=== PATIENT | female | born 1990 | race African-American/Black ===

== ENCOUNTER 2016-11-07 21:52 | Emergency (ER) | payer MEDICAID ==
[~2016-11-07] VITALS: Ht 170.2 cm; Wt 109.5 kg
[~2016-11-07 21:52] MED LIST: AMOXICILLIN/CLA1 TA1 PO; BACTRIM DS 8001 TAB PO; NORCO 325 MG-51 TAB PO; PERCOCET 325 MG1 TA2 PO; SEPTRA DS 8001 TAB PO; ZOFRAN ODT4 MG PO
[2016-11-07 21:54] VITALS: BP 135/96; TEMP 98.1
[2016-11-07] MEDS ORDERED: TYLENOL W/COD1 UDTAB PO (22:38)
[2016-11-07] MEDS ORDERED: VOLTAREN 75 DR75 MG PO (22:38)
[2016-11-07] MEDS ORDERED: BACTRIM DS 8001 TAB PO (22:38)
[2016-11-07 22:55] VITALS: PULSE 96
== END 2016-11-07 22:56 | disposition home or self-care (01) ==
LOC: COL.ER 21:52
DX: N76.2 Acute vulvitis (principal)

== ENCOUNTER 2016-11-08 16:08 | Emergency (ER) | payer MEDICAID ==
[~2016-11-08] VITALS: Ht 170.2 cm; Wt 86.4 kg
[~2016-11-08 16:08] MED LIST changes: +TYLENOL W/COD1 UDTAB PO; +VOLTAREN 75 DR75 MG PO
[2016-11-08 16:17] VITALS: BP 135/88; TEMP 98.6
[2016-11-08 17:40] VITALS: PULSE 85
== END 2016-11-08 18:35 | disposition home or self-care (01) ==
LOC: COL.ER 16:08
DX: N76.4 Abscess of vulva (principal)

== ENCOUNTER 2017-03-27 08:41 | Emergency (ER) | payer MEDICAID ==
[~2017-03-27] VITALS: Ht 170.2 cm; Wt 90.9 kg
[2017-03-27 08:45] VITALS: TEMP 98
[2017-03-27] MEDS ORDERED: NORCO 325 MG-51 TAB PO (09:44)
[2017-03-27] MEDS ORDERED: AMOXICILLIN 8751 TAB PO (09:44)
[2017-03-27 10:12] VITALS: BP 119/78; PULSE 69
== END 2017-03-27 10:13 | disposition home or self-care (01) ==
LOC: COL.ER 08:41
DX: L03.314 Cellulitis of groin (principal)

== ENCOUNTER 2017-07-12 13:42 | Emergency (ER) | payer MEDICAID ==
[~2017-07-12] VITALS: Ht 170.2 cm; Wt 117.3 kg
[~2017-07-12 13:42] MED LIST changes: +AMOXICILLIN 8751 TAB PO
[2017-07-12 13:45] VITALS: BP 135/92; PULSE 83; TEMP 98.1
[2017-07-12 14:56] LABS: CALCIUM 9.7 mg/dL (8.4-10.2); CREATININE, serum 0.68 mg/dL (0.52-1.25); POTASSIUM 3.9 mmol/L (3.4-5.0)
[2017-07-12 15:00] LABS: BASO % 0.3 % (0.0-2.0); EOS # 0.1 (0.0-0.7); EOS % 1.6 % (0-4.0); GRAN # 3.7 (1.4-6.5); GRAN % 53.2 % (42.2-75.2); LYMPH # 2.3 (1.2-3.4); LYMPH % 32.8 % (20.0-51.0); MEAN CELL VOLUME 74 fl (80.0-100.0); MEAN CORPUSCULAR HGB CONC 32 g/dl (33.0-37.0); MEAN PLATELET VOLUME 9.7 fl (7.4-10.4); MONO # 0.8 (0.1-0.6); MONO % 11.8 % (1.7-9.3); PLATELET COUNT 375 K/mm3 (130-400); RED BLOOD COUNT 4.41 M/mm3 (4.10-5.30); REDCELL DISTRIBUTION WIDTH-CV 16.2 % (11.5-14.5); WHITE BLOOD COUNT 6.9 K/mm3 (4.8-10.8)
[2017-07-12 15:05] LABS: HEMATOCRIT 32.5 % (37.0-47.0); HEMOGLOBIN 10.3 g/dl (12.5-16.0); MEAN CORPUSCULAR HEMOGLOBIN 23 pg (27.0-31.0)
[2017-07-12] MEDS ORDERED: CEPHALEXIN500 M1 PO (15:30)
[2017-07-12] MEDS ORDERED: ROXICODONE 55 MG/TAB PO (15:30)
== END 2017-07-12 15:41 | disposition home or self-care (01) ==
LOC: COL.ER 13:42
PROVIDERS: Emergency Medicine
DX: N61.0 Mastitis without abscess (principal); Z87.891 Personal history of nicotine dependence

== ENCOUNTER 2018-04-30 00:38 | Emergency (ER) | payer MEDICAID ==
[~2018-04-30] VITALS: Ht 170.2 cm; Wt 121.4 kg
[~2018-04-30 00:38] MED LIST changes: +CEPHALEXIN500 M1 PO; +ROXICODONE 55 MG/TAB PO
[2018-04-30 00:45] VITALS: TEMP 98.9
[2018-04-30 01:28] LABS: COLLECTION METHOD CLEAN CATCH
[2018-04-30 01:33] LABS: MUCOUS Present /lpf; PH 6 (5-8); URINE APPEARANCE Hazy; URINE BACTERIA Rare /hpf; URINE BILIRUBIN Negative (NEGATIVE); URINE BLOOD 3+ (NEGATIVE); URINE COLOR Yellow; URINE GLUCOSE Negative (NEGATIVE); URINE KETONE Negative (NEGATIVE); URINE LEUKOCYTE ESTERASE Negative (NEGATIVE); URINE NITRATE Negative (NEGATIVE); URINE PROTEIN(semi-quant) Negative (NEGATIVE); URINE RBC 20-50 /hpf; URINE UROBILINOGEN Negative (NEGATIVE)
[2018-04-30] MEDS ORDERED: FOLIVANE-OB1 CAP PO (01:35)
[2018-04-30 02:16] VITALS: BP 110/71
[2018-04-30 03:05] VITALS: PULSE 98
== END 2018-04-30 03:05 | disposition home or self-care (01) ==
LOC: COL.ER 00:38
PROVIDERS: Nurse Practitioner
DX: O20.9 Hemorrhage in early pregnancy, unspecified (principal); Z87.891 Personal history of nicotine dependence; Z3A.01 Less than 8 weeks gestation of pregnancy

== ENCOUNTER 2018-05-26 13:00 | Emergency (ER) | payer MEDICARE, MEDICAID ==
[~2018-05-26] VITALS: Ht 170.2 cm; Wt 116.8 kg
[~2018-05-26 13:00] MED LIST changes: +FOLIVANE-OB1 CAP PO
[2018-05-26 13:03] VITALS: TEMP 98.2
[2018-05-26 13:54] LABS: BASO % 0.4 % (0.0-2.0); EOS # 0.1 (0.0-0.7); EOS % 1.5 % (0-4.0); GRAN # 2.1 (1.4-6.5); GRAN % 44.1 % (42.2-75.2); HEMOGLOBIN 11.7 g/dl (12.5-16.0); LYMPH # 2.1 (1.2-3.4); LYMPH % 43.3 % (20.0-51.0); MEAN CELL VOLUME 74 fl (80.0-100.0); MEAN CORPUSCULAR HEMOGLOBIN 24 pg (27.0-31.0); MEAN CORPUSCULAR HGB CONC 33 g/dl (33.0-37.0); MEAN PLATELET VOLUME 9.5 fl (7.4-10.4); MONO # 0.5 (0.1-0.6); MONO % 10.5 % (1.7-9.3); PLATELET COUNT 388 K/mm3 (130-400); REDCELL DISTRIBUTION WIDTH-CV 17.1 % (11.5-14.5)
[2018-05-26 14:01] LABS: ALBUMIN 4.3 gm/dL (3.5-5.0); BILIRUBIN,TOTAL 0.3 mg/dL (0.0-1.0); CALCIUM 10.1 mg/dL (8.4-10.2); CREATININE, serum 0.67 mg/dL (0.52-1.25); POTASSIUM 3.8 mmol/L (3.4-5.0); TOTAL PROTEIN 8.5 gm/dL (6.4-8.2)
[2018-05-26 14:24] LABS: COLLECTION METHOD CLEAN CATCH
[2018-05-26 14:34] LABS: MUCOUS Present /lpf; PH 5 (5-8); URINE APPEARANCE Hazy; URINE BACTERIA Many /hpf; URINE BILIRUBIN Negative (NEGATIVE); URINE BLOOD Negative (NEGATIVE); URINE COLOR Yellow; URINE GLUCOSE Negative (NEGATIVE); URINE KETONE Negative (NEGATIVE); URINE LEUKOCYTE ESTERASE Negative (NEGATIVE); URINE NITRATE Negative (NEGATIVE); URINE PROTEIN(semi-quant) 1+ (NEGATIVE); URINE UROBILINOGEN Negative (NEGATIVE)
[2018-05-26] MEDS ORDERED: LIDODERM 5% PATC1 EA TP (15:50)
[2018-05-26] MEDS ORDERED: NORCO 325 MG-51 TAB PO (15:50)
[2018-05-26 16:10] VITALS: BP 111/68; PULSE 71
[2018-05-27] MEDS ORDERED: MACROBID 1100 MG/CAP PO (14:10)
== END 2018-05-26 16:10 | disposition home or self-care (01) ==
LOC: COL.ER 13:00
PROVIDERS: Emergency Medicine
DX: O99.89 Other specified diseases and conditions complicating pregnancy, childbirth and the puerperium (principal); M54.6 Pain in thoracic spine; Z3A.00 Weeks of gestation of pregnancy not specified
CPT/HCPCS: J1170; J2405; J7030

== ENCOUNTER 2018-08-19 11:35 | Emergency (ER) | payer MEDICARE, MEDICAID ==
[~2018-08-19] VITALS: Ht 170.2 cm; Wt 71.4 kg
[~2018-08-19 11:35] MED LIST changes: +LIDODERM 5% PATC1 EA TP; +MACROBID 1100 MG/CAP PO
[2018-08-19 11:43] VITALS: TEMP 98.6
[2018-08-19 12:37] LABS: BASO % 0.3 % (0.0-2.0); EOS # 0.1 (0.0-0.7); EOS % 1.1 % (0-4.0); GRAN # 4.1 (1.4-6.5); GRAN % 62.2 % (42.2-75.2); HEMATOCRIT 33.8 % (37.0-47.0); HEMOGLOBIN 10.9 g/dl (12.5-16.0); LYMPH # 1.7 (1.2-3.4); LYMPH % 26.1 % (20.0-51.0); MEAN CELL VOLUME 77 fl (80.0-100.0); MEAN CORPUSCULAR HEMOGLOBIN 25 pg (27.0-31.0); MEAN CORPUSCULAR HGB CONC 32 g/dl (33.0-37.0); MEAN PLATELET VOLUME 10.1 fl (7.4-10.4); MONO # 0.6 (0.1-0.6); MONO % 9.5 % (1.7-9.3); PLATELET COUNT 381 K/mm3 (130-400); RED BLOOD COUNT 4.41 M/mm3 (4.10-5.30); REDCELL DISTRIBUTION WIDTH-CV 15.9 % (11.5-14.5)
[2018-08-19 13:11] LABS: ALBUMIN 3.9 gm/dL (3.5-5.0); BILIRUBIN,TOTAL 0.2 mg/dL (0.0-1.0); CALCIUM 9.4 mg/dL (8.4-10.2); CREATININE, serum 0.63 mg/dL (0.52-1.25); POTASSIUM 3.8 mmol/L (3.4-5.0); TOTAL PROTEIN 7.7 gm/dL (6.4-8.2)
[2018-08-19 13:58] LABS: C-REACTIVE PROTEIN 1.8 mg/dL (0.0-0.9)
[2018-08-19 14:26] VITALS: BP 128/77; PULSE 71
== END 2018-08-19 14:26 | disposition home or self-care (01) ==
LOC: COL.ER 11:35
PROVIDERS: Nurse Practitioner
DX: O26.892 Other specified pregnancy related conditions, second trimester (principal); R10.10 Upper abdominal pain, unspecified; Z3A.22 22 weeks gestation of pregnancy
CPT/HCPCS: J7030

== ENCOUNTER 2018-11-30 13:54 | Outpatient (CLI) | payer MEDICARE, MEDICAID ==
[~2018-11-30] VITALS: Ht 170.2 cm; Wt 125.0 kg
[2018-11-30 14:14] VITALS: BP 122/87; PULSE 104; TEMP 97.4
--- NOTE | 2018-11-30 14:15 | NUR ---
G1 at 36.6 weeks gestation to LDR4 with c/o contractions. Patient states that "they have been going on all day". She reports good movement and denies leaking of fluid or vaginal bleeding. Patient changed into gown and wedged to left side. EFMs explained and applied. VS obtained and stable. SVE /-3. Assessment completed. Plan of care reviewed.
[2018-11-30 14:45] VITALS: BP 132/81; PULSE 100
[2018-11-30 15:10] VITALS: BP 136/62; PULSE 98
[2018-12-01] MEDS ORDERED: ZANTAC 7575 MG PO (02:34)
== END 2018-11-30 15:20 | disposition home or self-care (01) ==
LOC: LDRO 13:54
DX: O62.9 Abnormality of forces of labor, unspecified (principal); Z3A.36 36 weeks gestation of pregnancy

== ENCOUNTER → 2018-12-01 | Outpatient (CLI) | payer MEDICARE, MEDICAID ==
[~2018-12-01] VITALS: Ht 170.2 cm; Wt 124.5 kg
[~2018-12-01] MED LIST changes: +ZANTAC 7575 MG PO
--- NOTE | 2018-12-01 02:20 | NUR ---
PT TO UNIT VIA WHEELCHAIR WITH C/O OF LEFT SIDED STOMACH PAIN AND DECREASED MOVEMENT. PT ORIENTED TO ROOM, CHANGED INTO GOWN. SVE PERFORMED, VS OBTAINED, EFM APPLIED.
[2018-12-01 02:29] VITALS: BP 122/81; PULSE 92; TEMP 98.5
[2018-12-01 03:00] VITALS: BP 122/81; PULSE 92; TEMP 98.5
--- NOTE | 2018-12-01 03:38 | NUR ---
0338- MONITORING DC'D. 0345- DISCHARGE INSTRUCTIONS REVIEWED WITH PT AND SPOUSE. PT ENCOURAGED TO DRINK PLENTY OF WATER DAILY, UNDERSTANDING VERBALIZED. PT LEFT THE UNIT AMBULATORY WITH SPOUSE.
== END ==
LOC: LDRO 02:13
DX: O36.8130 Decreased fetal movements, third trimester, not applicable or unspecified (principal); O26.893 Other specified pregnancy related conditions, third trimester; R10.9 Unspecified abdominal pain; Z3A.37 37 weeks gestation of pregnancy

== ENCOUNTER 2019-06-22 04:51 | Emergency (ER) | payer MEDICARE, MEDICAID ==
[~2019-06-22] VITALS: Ht 170.2 cm; Wt 109.1 kg
[~2019-06-22 04:51] MED LIST changes: +BREASTPUMP MC; +IBU600 MG PO; +PRENATAL MVI
[2019-06-22 04:54] VITALS: TEMP 97.4
[2019-06-22 05:58] VITALS: BP 106/55
[2019-06-22 07:12] VITALS: PULSE 78
== END 2019-06-22 07:15 | disposition home or self-care (01) ==
LOC: COL.ER 04:51
DX: R51 Headache (principal)
CPT/HCPCS: J1200; J1885; J2550

== ENCOUNTER 2019-06-23 18:37 | Emergency (ER) | payer MEDICARE, MEDICAID ==
[~2019-06-23] VITALS: Ht 170.2 cm; Wt 120.0 kg
[2019-06-23 18:55] VITALS: BP 135/74; PULSE 76; TEMP 98.5
[2019-06-23 20:43] LABS: MEAN CELL VOLUME 68 fl (80.0-100.0); MEAN CORPUSCULAR HGB CONC 30 g/dl (33.0-37.0); MEAN PLATELET VOLUME 9.6 fl (7.4-10.4); PLATELET COUNT 393 K/mm3 (130-400); RED BLOOD COUNT 4.85 M/mm3 (4.10-5.30); REDCELL DISTRIBUTION WIDTH-CV 19.9 % (11.5-14.5)
[2019-06-23 20:45] LABS: HEMATOCRIT 32.8 % (37.0-47.0); HEMOGLOBIN 9.9 g/dl (12.5-16.0); MEAN CORPUSCULAR HEMOGLOBIN 20 pg (27.0-31.0)
[2019-06-23 20:51] LABS: CALCIUM 9.5 mg/dL (8.4-10.2); CREATININE, serum 0.87 (0.52-1.25)
[2019-06-23 20:58] LABS: COLLECTION METHOD CLEAN CATCH
[2019-06-23 21:09] LABS: MUCOUS Present /lpf; PH 6 (5-8); URINE APPEARANCE Hazy; URINE BACTERIA Many /hpf; URINE BILIRUBIN Negative (NEGATIVE); URINE BLOOD Negative (NEGATIVE); URINE COLOR Yellow; URINE GLUCOSE Negative (NEGATIVE); URINE KETONE Negative (NEGATIVE); URINE LEUKOCYTE ESTERASE Negative (NEGATIVE); URINE NITRATE Negative (NEGATIVE); URINE PROTEIN(semi-quant) Negative (NEGATIVE); URINE UROBILINOGEN Negative (NEGATIVE)
[2019-06-23 21:40] LABS: EOSINOPHIL 1 % (0-4); LYMPHOCYTE 50 % (20.0-51.0); NEUTROPHILS 43 % (42.0-75.2)
[2019-06-23 21:41] LABS: HELMET CELLS 1+; OVALOCYTES 1+; PLATELET ESTIMATE NORMAL (NORMAL); TEAR DROP CELLS 1+
[2019-06-23 21:42] LABS: ANISOCYTOSIS 1+; MICROCYTOSIS 2+; STOMATOCYTE 1+
== END 2019-06-23 22:09 | disposition home or self-care (01) ==
LOC: COL.ER 18:37
PROVIDERS: Physician Assistant
DX: R51 Headache (principal)
CPT/HCPCS: J1200; J1885; J2550; J7030

== ENCOUNTER 2020-04-07 00:42 | Emergency (ER) | payer MEDICARE, MEDICAID ==
[~2020-04-07] VITALS: Ht 170.2 cm; Wt 111.8 kg
[2020-04-07 01:08] VITALS: TEMP 97.7
[2020-04-07] MEDS ORDERED: ZOFRAN ODT4 MG PO (01:55)
[2020-04-07] MEDS ORDERED: FIORICET 325 MG1 TA1 PO (01:55)
[2020-04-07 02:35] VITALS: BP 132/70; PULSE 78
== END 2020-04-07 02:40 | disposition home or self-care (01) ==
LOC: COL.ER 00:42
DX: G43.909 Migraine, unspecified, not intractable, without status migrainosus (principal); F17.210 Nicotine dependence, cigarettes, uncomplicated
CPT/HCPCS: J1200; J2550

== ENCOUNTER 2020-04-07 23:24 | Emergency (ER) | payer MEDICARE, MEDICAID ==
[~2020-04-07] VITALS: Ht 170.2 cm; Wt 111.8 kg
[~2020-04-07 23:24] MED LIST changes: +FIORICET 325 MG1 TA1 PO
[2020-04-07 23:29] VITALS: TEMP 98.4
[2020-04-07 23:53] LABS: BASO % 0.3 % (0.0-2.0); EOS # 0.2 (0.0-0.7); EOS % 2.3 % (0-4.0); GRAN # 2.8 (1.4-6.5); GRAN % 43.4 % (42.2-75.2); HEMOGLOBIN 10.5 g/dl (12.5-16.0); LYMPH # 2.8 (1.2-3.4); LYMPH % 43.7 % (20.0-51.0); MEAN CELL VOLUME 71 fl (80.0-100.0); MEAN CORPUSCULAR HEMOGLOBIN 22 pg (27.0-31.0); MEAN CORPUSCULAR HGB CONC 31 g/dl (33.0-37.0); MEAN PLATELET VOLUME 9.6 fl (7.4-10.4); MONO # 0.7 (0.1-0.6); MONO % 10.1 % (1.7-9.3); PLATELET COUNT 383 K/mm3 (130-400); RED BLOOD COUNT 4.79 M/mm3 (4.10-5.30); REDCELL DISTRIBUTION WIDTH-CV 18.3 % (11.5-14.5)
[2020-04-08 00:10] LABS: ALBUMIN 4.1 gm/dL (3.5-5.0); BILIRUBIN,TOTAL 0.2 mg/dL (0.0-1.0); C-REACTIVE PROTEIN 1.1 mg/dL (0.0-0.9); CALCIUM 9.4 mg/dL (8.4-10.2); CREATININE, serum 0.67 (0.52-1.25); POTASSIUM 3.7 mmol/L (3.4-5.0)
[2020-04-08 01:23] VITALS: BP 148/95; PULSE 69
== END 2020-04-08 01:45 | disposition home or self-care (01) ==
LOC: COL.ER 23:24
PROVIDERS: Physician Assistant
DX: R51 Headache (principal); D57.3 Sickle-cell trait; F17.210 Nicotine dependence, cigarettes, uncomplicated
CPT/HCPCS: J1885; J2405; J3010; J7030

== ENCOUNTER 2020-11-13 13:29 | Emergency (ER) | payer MEDICARE, MEDICAID ==
[~2020-11-13] VITALS: Ht 170.2 cm; Wt 109.1 kg
[2020-11-13 13:41] VITALS: TEMP 98.8
[2020-11-13 15:38] VITALS: BP 125/63; PULSE 75
== END 2020-11-13 15:38 | disposition home or self-care (01) ==
LOC: COL.ER 13:29
DX: R51.9 Headache, unspecified (principal); F17.210 Nicotine dependence, cigarettes, uncomplicated
CPT/HCPCS: J1200; J1885; J2765; J7030

== ENCOUNTER 2020-12-10 13:30 | Emergency (ER) | payer MEDICARE, MEDICAID ==
[~2020-12-10] VITALS: Ht 170.2 cm; Wt 109.1 kg
[2020-12-10 13:37] VITALS: BP 116/77; TEMP 98.2
[2020-12-10 14:19] LABS: COLLECTION METHOD CLEAN CATCH
[2020-12-10 14:24] LABS: BASO % 0.6 % (0.0-2.0); EOS # 0.1 (0.0-0.7); EOS % 2.9 % (0-4.0); GRAN # 1.7 (1.4-6.5); HEMOGLOBIN 11.2 g/dl (12.5-16.0); LYMPH # 2.3 (1.2-3.4); LYMPH % 49.2 % (20.0-51.0); MEAN CELL VOLUME 70 fl (80.0-100.0); MEAN CORPUSCULAR HEMOGLOBIN 22 pg (27.0-31.0); MEAN CORPUSCULAR HGB CONC 32 g/dl (33.0-37.0); MEAN PLATELET VOLUME 9.6 fl (7.4-10.4); MONO # 0.5 (0.1-0.6); MONO % 11.3 % (1.7-9.3); PLATELET COUNT 462 K/mm3 (130-400); REDCELL DISTRIBUTION WIDTH-CV 17.2 % (11.5-14.5)
[2020-12-10 14:30] LABS: HEMATOCRIT 35.6 % (37.0-47.0)
[2020-12-10 14:35] LABS: MUCOUS Present /lpf; PH 5 (5-8); SQUAMOUS EPITHELIAL 0-2 /hpf; URINE APPEARANCE Clear; URINE BACTERIA None Seen /hpf; URINE BILIRUBIN Negative (NEGATIVE); URINE BLOOD Negative (NEGATIVE); URINE COLOR Yellow; URINE GLUCOSE Negative (NEGATIVE); URINE KETONE Negative (NEGATIVE); URINE LEUKOCYTE ESTERASE Negative (NEGATIVE); URINE NITRATE Negative (NEGATIVE); URINE PROTEIN(semi-quant) Negative (NEGATIVE); URINE RBC 0-2 /hpf; URINE UROBILINOGEN Negative (NEGATIVE)
[2020-12-10 14:45] LABS: ALBUMIN 4.5 gm/dL (3.5-5.0); BILIRUBIN,TOTAL 0.4 mg/dL (0.0-1.0); CALCIUM 10.3 mg/dL (8.4-10.2); CREATININE, serum 0.77 (0.52-1.25); POTASSIUM 4.7 mmol/L (3.4-5.0); TOTAL PROTEIN 8.3 gm/dL (6.4-8.2)
[2020-12-10 15:39] VITALS: PULSE 70
== END 2020-12-10 15:46 | disposition home or self-care (01) ==
LOC: COL.ER 13:30
PROVIDERS: Physician Assistant
DX: K59.00 Constipation, unspecified (principal); Z32.02 Encounter for pregnancy test, result negative; Z87.891 Personal history of nicotine dependence
CPT/HCPCS: J1885; J7030

== ENCOUNTER → 2021-01-06 | Outpatient (CLI) | payer MEDICARE, MEDICAID | LOC: COL.RAD 12:05 | DX: I72.9 Aneurysm of unspecified site (principal); I82.409 Acute embolism and thrombosis of unspecified deep veins of unspecified lower extremity | CPT/HCPCS: A9585 ==

== ENCOUNTER 2021-03-19 12:20 | Emergency (ER) | payer MEDICARE, MEDICAID ==
[~2021-03-19] VITALS: Ht 170.2 cm; Wt 111.8 kg
[2021-03-19 12:27] VITALS: BP 128/85; PULSE 107; TEMP 98.4
== END 2021-03-19 13:05 | disposition home or self-care (01) ==
LOC: COL.ER 12:20
DX: Z20.822 Contact with and (suspected) exposure to COVID-19 (principal); F17.210 Nicotine dependence, cigarettes, uncomplicated

== ENCOUNTER → 2021-10-21 | Outpatient (CLI) | payer MEDICARE, MEDICAID ==
[~2021-10-21] VITALS: Ht 170.2 cm; Wt 119.5 kg
[~2021-10-21] MED LIST changes: +PRENATAL
[2021-10-22] VITALS: BP 98/59; PULSE 100; TEMP 98.2
--- NOTE | 2021-10-22 00:20 | NUR ---
RN AT BEDSIDE AND ATTEMPTED IV X2 UNSUCCESSFULLY. PT RESTING IN BED, NO SIGNS OF DISTRESS AND REPORTS CONSTANT 5/10 PAIN IN STOMACH
[2021-10-22 00:30] VITALS: BP 122/85; PULSE 101
--- NOTE | 2021-10-22 01:15 | NUR ---
PT DISCHARGED TO HOME IN STABLE, UNDELIVERED CONDITION AT THIS TIME. PT AMBULATED OFF UNIT WITH SPOUSE
== END ==
LOC: LDRO 23:32 → LDR 23:37 → LDRO 10-23 23:37
DX: O62.9 Abnormality of forces of labor, unspecified (principal); Z3A.38 38 weeks gestation of pregnancy
CPT/HCPCS: OP

== ENCOUNTER 2021-10-27 06:07 | Inpatient (IN) | payer MEDICARE, MEDICAID ==
[~2021-10-27] VITALS: Ht 170.2 cm; Wt 122.3 kg
[2021-10-27] VITALS (19 sets, daily range): BP systolic 102–122; BP diastolic 60–86; PULSE 74–107; TEMP 97.4–98.7
[~2021-10-27 06:07] MED LIST changes: -PRENATAL
--- NOTE | 2021-10-27 06:15 | NUR ---
0615-Patient ambulatory to 210 for scheduled repeat c/s. Assisted into gown and placed on EFM. Assessment complete. Patient consents reviewed and signed. IV to left hand, blood collected and sent to lab. LR infusing, see EMAR. Updated patient scheduled time for surgery pushed back due to current surgery in OR.
[2021-10-27] MEDS ORDERED: PRENATAL (06:45)
[2021-10-27 08:01] LABS: BASO % 0.4 % (0.0-2.0); EOS # 0.1 K/mm3 (0.0-0.7); EOS % 1.3 % (0.0-4.0); GRAN # 4.9 K/mm3 (1.4-6.5); GRAN % 59.1 % (42.2-75.2); LYMPH # 2.2 K/mm3 (1.2-3.4); MEAN CELL VOLUME 63 fl (80.0-100.0); MEAN CORPUSCULAR HGB CONC 31 g/dl (33.0-37.0); MEAN PLATELET VOLUME 10.2 fl (7.4-10.4); MONO % 11.6 % (1.7-9.3); PLATELET COUNT 313 K/mm3 (130-400); RED BLOOD COUNT 4.32 M/mm3 (4.10-5.30)
[2021-10-27 08:03] LABS: HEMATOCRIT 27.1 % (37.0-47.0); HEMOGLOBIN 8.4 g/dl (12.5-16.0); MEAN CORPUSCULAR HEMOGLOBIN 19 pg (27-31)
--- NOTE | 2021-10-27 09:54 | NUR ---
Initial visit; Patient awaiting a . [employer] offered God's blessings and well wishes. Also, Cathy Hooker.
--- NOTE | 2021-10-27 10:15 | NUR ---
1015-Patient to PACU via bed. A&O x4 and drowsy. VSS, see flow record. Recieved report from ELZBIETA Sullivan. Assesssment complete. Abdominal dressing C/D/I. Fundal masssage firm. Lochia WNL.
--- NOTE | 2021-10-27 16:00 | NUR ---
1600-Patient was up to nursery via wheel chair, standby assist. Davis discontinued at this time. Educated on safety and need to call for help up to bathroom. Denies needs.
[2021-10-28 03:00] VITALS: BP 113/58; PULSE 88; TEMP 98.2
[2021-10-28 07:30] VITALS: BP 111/63; PULSE 91; TEMP 98.9
[2021-10-28 07:52] LABS: HEMATOCRIT 26.1 % (37.0-47.0)
[2021-10-28] MEDS ORDERED: IBU800 M1 PO (10:44)
[2021-10-28] MEDS ORDERED: FERROUS GL325 MG/TAB PO (10:45)
[2021-10-28] MEDS ORDERED: PERCOCET 325 MG1 TA3 PO (10:45)
--- NOTE | 2021-10-28 15:20 | NUR ---
1500: THIS RN ASSUMES CARE OF PT. 1505: WENT INTO PT. ROOM TO ANSWER QUESTION ABOUT SHOWER AND BANDAGE. LINENS CHANGED ON BED AND NEW GOWN GIVEN. INFORMED PT RN WILL BE BACK LATER TO DO VS/MEDICATIONS, BUT TO CALL IF SHE NEEDS ANYTHING BEFORE THEN. INSTRUCTED PT AND FAMILY ABOUT SHOWER/SHOWER BENCH AND ALL VERBALIZE UNDERSTANDING.
[2021-10-28 16:35] VITALS: BP 130/71; PULSE 82; TEMP 98
--- NOTE | 2021-10-28 18:40 | NUR ---
1600: PT. SHOWERED AND CHANGED INTO CLEAN CLOTHES; DRSG OFF. INCISION LOOKS C/D/I
[2021-10-28 19:51] VITALS: BP 114/60; PULSE 99; TEMP 97.8
[2021-10-29 07:00] VITALS: BP 115/67; PULSE 92; TEMP 97.8
[2021-10-29 17:00] VITALS: BP 107/65; PULSE 75; TEMP 98.3
[2021-10-29 19:11] VITALS: BP 119/61; PULSE 92; TEMP 97.8
[2021-10-30 07:00] VITALS: BP 137/78; PULSE 81; TEMP 98
[2021-10-30 12:30] VITALS: BP 133/71; PULSE 68; TEMP 97.6
--- NOTE | 2021-10-30 14:13 | NUR ---
ALL DC PAPERWORK REVIEWED AND UNDERSTOOD INCLUDING HOME MEDICATIONS, FOLLOW UP APPOINTMENTS, AND WHEN TO NOTIFY PHYSICIAN. PT DENIES FURTHER QUESTIONS OR CONCERNS. VITAL SIGNS STABLE. THIS NURSE ASSESSES SAFETY IN [place]. AMBULATORY TO VEHICLE AT THIS TIME WITH ALL BELONGINGS ACCOUNTED FOR.
== END 2021-10-30 14:15 | disposition home or self-care (01) | DRG 788 ==
LOC: OB 06:07
PROVIDERS: ADMIT Obstetrics & Gynecology
PROC: 10D00Z1 Extraction of Products of Conception, Low, Open Approach (ICD-10-PCS; principal; 2021-10-27)
DX: O34.211 Maternal care for low transverse scar from previous cesarean delivery (principal); O99.214 Obesity complicating childbirth; O99.02 Anemia complicating childbirth; D57.3 Sickle-cell trait; O99.344 Other mental disorders complicating childbirth; F81.9 Developmental disorder of scholastic skills, unspecified; O34.13 Maternal care for benign tumor of corpus uteri, third trimester; D25.9 Leiomyoma of uterus, unspecified; F53.0 Postpartum depression; Z3A.39 39 weeks gestation of pregnancy; Z37.0 Single live birth
CPT/HCPCS: J0690; J1885; J2175; J2250; J2405; J2590; J7120

== ENCOUNTER 2022-01-24 07:52 | Emergency (ER) | payer MEDICARE, MEDICAID ==
[~2022-01-24] VITALS: Ht 170.2 cm; Wt 111.8 kg
[~2022-01-24 07:52] MED LIST changes: +FERROUS GL325 MG/TAB PO; +IBU800 M1 PO; +PERCOCET 325 MG1 TA3 PO; +PRENATAL
[2022-01-24 07:58] VITALS: TEMP 98.9
[2022-01-24 08:37] LABS: COLLECTION METHOD CLEAN CATCH
[2022-01-24 08:42] LABS: BASO % 0.4 % (0.0-2.0); EOS # 0.1 K/mm3 (0.0-0.7); EOS % 2.5 % (0.0-4.0); GRAN # 2.7 K/mm3 (1.4-6.5); GRAN % 48.4 % (42.2-75.2); LYMPH # 2.1 K/mm3 (1.2-3.4); LYMPH % 37.3 % (20.0-51.0); MEAN CELL VOLUME 67 fl (80.0-100.0); MEAN CORPUSCULAR HGB CONC 31 g/dl (33.0-37.0); MEAN PLATELET VOLUME 9.4 fl (7.4-10.4); MONO # 0.6 K/mm3 (0.1-0.6); PLATELET COUNT 382 K/mm3 (130-400); REDCELL DISTRIBUTION WIDTH-CV 21.1 % (11.5-14.5)
[2022-01-24 08:43] LABS: HEMATOCRIT 31.3 % (37.0-47.0); HEMOGLOBIN 9.7 g/dl (12.5-16.0); MEAN CORPUSCULAR HEMOGLOBIN 21 pg (27-31)
[2022-01-24 08:44] LABS: PH 6 (5-8); SQUAMOUS EPITHELIAL 0-2 /hpf (0-10); URINE APPEARANCE Clear (CLEAR/HAZY); URINE BACTERIA Rare /hpf (NONE SEEN); URINE BILIRUBIN Negative (NEGATIVE); URINE BLOOD Negative (NEGATIVE); URINE COLOR Yellow (YELLOW); URINE GLUCOSE Negative (NEGATIVE); URINE KETONE Negative (NEGATIVE); URINE LEUKOCYTE ESTERASE Negative (NEGATIVE); URINE NITRATE Negative (NEGATIVE); URINE PROTEIN(semi-quant) Negative (NEGATIVE); URINE RBC 0-2 /hpf (0-2); URINE UROBILINOGEN Negative (NEGATIVE)
[2022-01-24 08:47] LABS: ALBUMIN 3.6 gm/dL (3.5-5.0); BILIRUBIN,TOTAL 0.2 mg/dL (0.2-1.2); CALCIUM 9.6 mg/dL (8.4-10.2); CREATININE, serum 0.78 mg/dL (0.57-1.11); POTASSIUM 3.8 mmol/L (3.5-4.5); TOTAL PROTEIN 7.6 gm/dL (6.2-8.1)
[2022-01-24] MEDS ORDERED: PEPCID 20MG TAB20 MG PO (10:56)
[2022-01-24] MEDS ORDERED: ZOFRAN ODT4 MG PO (10:56)
[2022-01-24 11:13] VITALS: BP 113/775; PULSE 63
== END 2022-01-24 11:18 | disposition home or self-care (01) ==
LOC: COL.ER 07:52
PROVIDERS: Emergency Medicine
DX: K52.9 Noninfective gastroenteritis and colitis, unspecified (principal); Z32.02 Encounter for pregnancy test, result negative
CPT/HCPCS: J1885; J2405; J7120

== ENCOUNTER 2023-10-17 17:41 | Emergency (ER) | payer MEDICARE, MEDICAID ==
[~2023-10-17] VITALS: Ht 170.2 cm; Wt 112.3 kg
[~2023-10-17 17:41] MED LIST changes: +PEPCID 20MG TAB20 MG PO
[2023-10-17 17:46] VITALS: BP 121/71; PULSE 84; TEMP 97.9
== END 2023-10-17 18:53 | disposition home or self-care (01) ==
LOC: COL.ER 17:41
DX: O26.891 Other specified pregnancy related conditions, first trimester (principal); R51.9 Headache, unspecified; Z3A.01 Less than 8 weeks gestation of pregnancy

== ENCOUNTER 2023-11-05 17:37 | Emergency (ER) | payer MEDICARE, MEDICAID ==
[~2023-11-05] VITALS: Ht 170.2 cm; Wt 112.3 kg
[2023-11-05 18:05] LABS: BASO % 0.3 % (0.0-2.0); EOS # 0.1 K/mm3 (0.0-0.7); EOS % 1.9 % (0.0-4.0); GRAN # 3.2 K/mm3 (1.4-6.5); GRAN % 47.4 % (42.2-75.2); LYMPH # 2.8 K/mm3 (1.2-3.4); LYMPH % 41.6 % (20.0-51.0); MEAN CELL VOLUME 67 fl (80.0-100.0); MEAN CORPUSCULAR HGB CONC 31 g/dl (33.0-37.0); MEAN PLATELET VOLUME 9.3 fl (7.4-10.4); MONO # 0.6 K/mm3 (0.1-0.6); MONO % 8.5 % (1.7-9.3); PLATELET COUNT 402 K/mm3 (130-400); RED BLOOD COUNT 4.78 M/mm3 (4.10-5.30); REDCELL DISTRIBUTION WIDTH-CV 19.7 % (11.5-14.5)
[2023-11-05 18:06] LABS: HEMATOCRIT 31.9 % (37.0-47.0); HEMOGLOBIN 9.8 g/dl (12.5-16.0); MEAN CORPUSCULAR HEMOGLOBIN 21 pg (27-31)
[2023-11-05 18:26] LABS: ALBUMIN 3.6 gm/dL (3.5-5.0); BILIRUBIN,TOTAL 0.2 mg/dL (0.2-1.2); CALCIUM 9.8 mg/dL (8.4-10.2); CREATININE, serum 0.89 mg/dL (0.57-1.11); POTASSIUM 3.7 mmol/L (3.5-4.5); TOTAL PROTEIN 7.9 gm/dL (6.2-8.1)
[2023-11-05] MEDS ORDERED: NORCO 325 MG-51 TAB PO (18:35)
[2023-11-05 22:58] VITALS: BP 115/71; PULSE 83; TEMP 98.1
== END 2023-11-05 22:58 | disposition home or self-care (01) ==
LOC: COL.ER 17:37
PROVIDERS: Family Medicine
DX: O03.4 Incomplete spontaneous abortion without complication (principal)
CPT/HCPCS: J1170; J1885; J2270; J2405; J2704; J2765; J3010; J7120